=== PATIENT | male | born 1985 | race Caucasian/White ===

== ENCOUNTER 2019-12-12 06:48 | Emergency (ER) | payer BC, SELFPAY ==
--- NOTE | ~2019-12-12 | XR_ITS ---
EXAMINATION: XR elbow LT min 3V DATE: 12/12/2019 07:30 INDICATION: Left elbow injury. TECHNIQUE: 4 views of left elbow were obtained. COMPARISON: None. FINDINGS: Bone alignment is normal. No fracture. Joint spaces are well maintained. There is no elbow joint effusion. IMPRESSION: 1. Normal left elbow. Reviewed, dictated and finalized at location A. [facility] IMPRESSION: 1. Normal left elbow.
[2019-12-12 07:06] VITALS: BP 150/95; PULSE 91; RESP 18; TEMP 36.9; O2SAT 98
--- NOTE | 2019-12-12 07:15 | ED.FALL ---
HPI - Fall General Chief Complaint: Fall Stated Complaint: elbow pain Time Seen by Provider: 12/12/19 07:05 Source: patient Mode of arrival: ambulatory Limitations: no limitations History of Present Illness HPI Narrative: Maurizio is a very pleasant 34-year-old male patient. He presents ambulatory to the emergency room. He states that he was at work yesterday using a large drill, drilling holes and concrete. Apparently it was not anchored in it threw him off about 4 or 5 ft any landed on his left elbow. He had the back of his head also but he had a safety helmet on. His main complaint is pain and swelling to the back of the left elbow. He has minor abrasions to this area. Range of motion is normal in the elbow. There is no history of loss of consciousness. There is no other injury. Rates pain at about 4 or 5. He has not taken any medication for this. He came for a checkup. He states that this happened at about 2:00 p.m. yesterday. complaint: fall Onset (ago): day(s) (1 day) Fall from: standing Place fall occurred: work Loss of consciousness: none Symptoms prior to fall: none Context: other ( See HPI narrative) Location of injury: other ( back of left elbow) Location of injury - extremities: Left: elbow Severity scale (1-10): 4 Quality: sharp Associated symptoms (after fall): denies and other ( no headache. No neck pain. No abdominal pain. No chest pain. No back pain.) Related Data Home Medications Medication Instructions Recorded Confirmed buspirone 7.5 mg PO TID 12/12/19 12/12/19 Allergies Allergy/AdvReac Type Severity Reaction Status Date / Time No Known Allergies Allergy Verified 12/12/19 07:14 Review of Systems Review of Systems: All systems reviewed & are unremarkable except as noted in HPI and below Constitutional: Constitutional: Reports as per HPI, Denies chills and Denies fever(s) Eyes: Eyes: Reports as per HPI and Denies change in vision ENT: Reports system reviewed and no additional complaints, except as documented, Denies vertigo, Denies dizziness, Denies nasal congestion and Denies sore throat Cardiovascular: Cardiovascular: Reports as per HPI, Denies chest pain and Denies radiating jaw, neck or arm pain Respiratory: Respiratory: Reports as per HPI, Reports no additional respiratory complaints, Denies cough and Denies dyspnea Gastrointestinal: Gastrointestinal: Reports as per HPI, Denies abdominal pain, Denies nausea and Denies vomiting Genitourinary: Comments: Deferred Musculoskeletal: Musculoskeletal: Reports no additional musculoskeletal complaints Comments: pain to the back of the left elbow Integumentary/Breasts: Skin/Breast: Reports rash ( minor abrasion to back of left help. Last tetanus shot was 3 years ago.) Neurologic: Reports system reviewed and no additional complaints, except as documented, Denies vertigo, Denies dizziness, Denies syncope, Denies headache(s), Denies focal weakness, Denies numbness and Denies weakness Psychiatric: Psychiatric: Reports no additional psychiatric complaints and Reports anxiety Endocrine: Endocrine: Reports no additional endocrine complaints and Denies polydipsia Hematologic/Lymphatic: Hematologic/Lymphatic: Reports no additional hematologic/lymphatic complaints, Denies easy bleeding and Denies easy bruising Allergic/Immunologic: Allergic/Immunologic: Reports no additional allergic/immunologic complaints, Denies lip swelling and Denies tongue swelling PMFSH Past Medical History Medical History (Updated 12/12/19 @ 07:47 by Siva Beaver MD) Anxiety Surgical History Surgical History (Updated 12/12/19 @ 07:21 by Siva Beaver MD) H/O lymph node biopsy Social History Social History (Updated 12/12/19 @ 07:21 by Siva Beaver MD) Smoking packs per day: 1 Smoking cigarettes per day: 20.0 Years smoked: 10 Smoking pack-years: 10.00 Smoking status: Current every day smoker Alcohol intake: current
[2019-12-12 07:49] VITALS: BP 135/80; PULSE 82; RESP 18; O2SAT 98
== END 2019-12-12 07:54 | disposition home or self-care (01) ==
PROVIDERS: Emergency Provider Surgery
DX: S50.02XA Contusion of left elbow, initial encounter (principal); W19.XXXA Unspecified fall, initial encounter
CPT/HCPCS: 73080; 99282; 99283; A4565

== ENCOUNTER 2020-04-27 04:10 | Emergency (ER) | payer BC, SELFPAY ==
[2020-04-27 04:11] VITALS: BP 147/106; PULSE 99; RESP 16; TEMP 36.7; O2SAT 98
[2020-04-27 04:32] VITALS: BP 147/100
--- NOTE | 2020-04-27 04:38 | ED.BACK ---
HPI - Back Pain/Injury General Chief Complaint: Back Pain/Injury Stated Complaint: Back pain Source: patient Mode of arrival: ambulatory Limitations: no limitations History of Present Illness HPI Narrative: Sh 35-year-old gentleman that presents with right lower back pain that occurred after he was playing an outdoor game and while he was bending over he felt a back pain with muscle spasm on the right lower L4 paravertebral area that is tender with no radiation no numbness or tingling no dysuria no increased urination or difficulty with bowel movements. No fever or chills. MD elicited complaint: back pain and back injury Onset (ago): hour(s) Timing: intermittent Severity: moderate Pain scale (0-10): 6 Similar Symptoms Previously: No Quality: spasming Location: right lower back Radiation: none Exacerbating factors: movement Context: bending Associated symptoms: denies other symptoms Related Data Home Medications Medication Instructions Recorded Confirmed buspirone 7.5 mg PO TID 12/12/19 04/27/20 Allergies Allergy/AdvReac Type Severity Reaction Status Date / Time No Known Allergies Allergy Verified 12/12/19 07:14 Review of Systems Review of Systems: All systems reviewed & are unremarkable except as noted in HPI and below PMFSH Past Medical History Medical History Anxiety Surgical History Surgical History H/O lymph node biopsy Social History Social History Smoking packs per day: 1 Smoking cigarettes per day: 20.0 Years smoked: 10 Smoking pack-years: 10.00 Smoking status: Current every day smoker Alcohol intake: current Drinks per week: 1 Substance use: never Exam Const: General: no acute distress and alert Nutritional Appearance: well nourished Orientation/consciousness: patient oriented x3 HENMT: Head: normal to inspection Eyes: Conjunctivae: conjunctivae normal EOM: EOMs intact bilaterally Neck: Neck: normal visual inspection Chest: Chest palpation & inspection: normal inspection of the chest Resp: Effort & Inspection: normal respiratory effort Auscultation: clear to auscultation bilaterally Cardio: Rate: regular rate Rhythm: regular rhythm GI: Inspection: distended Auscultation: normal bowel sounds : Testes: Testes normal Urinary Catheter: Urinary Catheter: patent and draining Back/Spine/Pelvis: Back: no CVA tenderness Skin: General skin exam: normal color Rashes: no rashes Neuro: General: patient oriented x3, moves all extremities and no meningeal signs Extrem: Other: L4 right paravertebral muscle tenderness with palpation the negative straight leg-raising test. Psych: Appearance: grossly normal Affect: normal affect Attitude: cooperative Thought content: Yes Normal thought content present Course Course Emergency Course: Patient with right lower back pain given 60 of IV Toradol and p.o. cyclobenzaprine with moderate relief of pain. Vital Signs Vital signs: Vital Signs Temperature 36.7 C 04/27/20 04:11 Pulse Rate 99 04/27/20 04:11 Respiratory Rate 16 04/27/20 04:11 Blood Pressure 147/106 H 04/27/20 04:11 Pulse Oximetry 98 04/27/20 04:11 Temperature 36.7 C 04/27/20 04:11 Pulse Rate 99 04/27/20 04:11 Respiratory Rate 16 04/27/20 04:11 Blood Pressure 147/100 H 04/27/20 04:32 Pulse Oximetry 98 04/27/20 04:11 Critical Care Time Critical Care Time Critical Care Time: No Discharge Plan Discharge Clinical Impression: Strain of lumbar region Qualifiers: Encounter type: initial encounter Qualified Code(s): S39.012A - Strain of muscle, fascia and tendon of lower back, initial encounter Patient Disposition: Home, Self-Care Condition: Stable Instructions: Antibiotic Form, Low Back Strain (ED), Lower Back Exercises (ED) Additional
[2020-04-27] MEDS: CYCLOBENZAPRINE HCL 10 MG TABLET PO (04:40)
[2020-04-27] MEDS: KETOROLAC (*BKC) 60 MG/2 ML VIAL IM (04:40)
[2020-04-27 04:45] VITALS: BP 149/98; PULSE 97; RESP 20; O2SAT 97
[2020-04-27 04:47] VITALS: BP 149/98; PULSE 103; RESP 16; O2SAT 97
== END 2020-04-27 04:49 | disposition home or self-care (01) ==
PROVIDERS: Emergency Provider Emergency Medicine; PCP Family Medicine
DX: S39.012A Strain of muscle, fascia and tendon of lower back, initial encounter (principal)
CPT/HCPCS: 96372; 99283; A9270; J1885

== ENCOUNTER 2022-02-17 13:13 | Emergency (ER) | payer OTHER, SELFPAY ==
[2022-02-17 13:15] VITALS: BP 136/93; PULSE 89; RESP 20; TEMP 36.8; O2SAT 97
--- NOTE | 2022-02-17 13:33 | ED.EXTPRO ---
HPI - Extremity Problem General Chief complaint: Extremity Problem,Nontraumatic Stated complaint: THINKS HE BROKE HIS FOOT Time Seen by Provider: 02/17/22 13:33 Source: patient and RN notes reviewed Mode of arrival: ambulatory Limitations: no limitations History of Present Illness Complaint: joint swelling and joint paint Onset (ago): day(s) (1) Pain Consistency: constant Location: right and toe (great) Severity scale (1-10): 8 Quality: aching, sharp and constant Radiation: none Relieving factors: nothing Exacerbating factors: range of motion, weight bearing and palpation Associated symptoms: denies other symptoms Related Data Home Medications Medication Instructions Recorded Confirmed buspirone 7.5 mg PO TID 12/12/19 02/17/22 amlodipine 5 mg PO DAILY 02/17/22 02/17/22 gabapentin 400 mg PO BID 02/17/22 02/17/22 hydroxyzine pamoate 50 mg PO DAILY 02/17/22 02/17/22 Allergies Allergy/AdvReac Type Severity Reaction Status Date / Time No Known Allergies Allergy Verified 12/12/19 07:14 Review of Systems Review of Systems: All systems reviewed & are unremarkable except as noted in HPI and below PMFSH Past Medical History Medical History (Updated 02/17/22 @ 14:19 by Vickey Beard MD) Anxiety Hypertension Surgical History Surgical History H/O lymph node biopsy Social History Social History Smoking packs per day: 1 Smoking cigarettes per day: 20.0 Years smoked: 10 Smoking pack-years: 10.00 Smoking status: Current every day smoker Alcohol intake: current Drinks per week: 1 Alcohol use details: social Substance use: never Exam Const: General: healthy appearing, no acute distress and alert Nutritional Appearance: well nourished Orientation/consciousness: patient oriented x3 HENMT: Head: normal to inspection Ears: external ears normal Face and sinus: normal facial exam Mouth: Yes moist mucous membranes Eyes: Conjunctivae: conjunctivae normal Pupils: Equal, round and reactive pupils present EOM: EOMs intact bilaterally Neck: Neck: normal visual inspection Resp: Effort & Inspection: normal respiratory effort Auscultation: clear to auscultation bilaterally Cardio: Rate: regular rate Rhythm: regular rhythm GI: GI Palp: Yes Soft to palpation and No Tenderness to palpation present (GI) Auscultation: normal bowel sounds Back/Spine/Pelvis: Cervical Spine: cervical ROM normal Thoracic/Lumbar Spine: thoraco-lumbar ROM normal Skin: General skin exam: normal color Rashes: no rashes Neuro: General: patient oriented x3, moves all extremities, no focal motor deficits and CN's II-XI intact bilaterally Speech: normal speech Extrem: General: normal exam except as noted Right lower extremity: foot Details: tenderness Location: of the great toe Location: at the MTP joint, at the proximal phalanx, at the IP joint, along the dorsal aspect and along the plantar aspect, toes with normal ROM, warmth Location: of the great toe Location: at the MTP joint and edema Location: of the great toe Location: at the MTP joint and at the proximal phalanx Psych: Appearance: grossly normal and well kempt Mental Status: mental status grossly normal Affect: normal affect Attitude: cooperative Thought content: Yes Normal thought content present Course Vital Signs Vital signs: Vital Signs Temperature 36.8 C 02/17/22 13:15 Pulse Rate 89 02/17/22 13:15 Respiratory Rate 20 02/17/22 13:15 Blood Pressure 136/93 H 02/17/22 13:15 Pulse Oximetry 97 02/17/22 13:15 Temperature 36.4 C L 02/17/22 14:33 Pulse Rate 105 H 02/17/22 14:33 Respiratory Rate 20 02/17/22 14:33 Blood Pressure 132/93 H 02/17/22 14:33 Pulse Oximetry 95 02/17/22 14:33 MDM - Extremity (Nontraumatic) Lab Data Attestation: I reviewed the patient's lab results. Result diagrams: 02/17/22 13:42
[2022-02-17 13:53] LABS: Basophils Absolute Auto 0.08 K/mm3 (0.00-0.10); Basophils Percent Auto 0.8 % (0.0-1.0); Eosinophils Absolute Auto 0.29 K/mm3 (0.02-0.50); Hematocrit 41.3 % (40.0-54.0); Hemoglobin 14.1 g/dL (14.0-18.0); Immature Granulocyte Absolute 0.11 K/mm3 (0.00-0.00); Immature Granulocyte Percent A 1.1 % (0.0-0.0); Lymphocytes Absolute Auto 2.51 K/mm3 (1.10-4.50); Lymphocytes Percent Auto 25.8 % (18.0-42.0); Mean Corpuscular HGB Conc 34.1 g/dL (32.0-36.0); Mean Corpuscular Hemoglobin 32.7 pg (27.0-31.0); Mean Corpuscular Volume 95.8 fL (78.0-102.0); Mean Platelet Volume 8.4 fl (8.7-11.0); Monocytes Absolute Auto 0.62 K/mm3 (0.10-0.90); Monocytes Percent Auto 6.4 % (2.0-11.0); Neutrophils Absolute Auto 6.1 K/mm3 (1.7-7.2); Neutrophils Percent Auto 62.9 % (50.0-70.0); Platelet Count Result 342 K/mm3 (150-420); Red Blood Count 4.31 M/mm3 (4.70-6.10); Red Cell Distribution Width 13.2 % (11.6-14.4); White Blood Count 9.7 K/mm3 (4.8-10.8)
[2022-02-17 13:59] LABS: Anion Gap 10 mmol/L (8-16); Blood Urea Nitrogen 2 mg/dL (7-18); CRP 1.8 mg/dL (0.0-0.9); Calcium 8.8 mg/dL (8.5-10.1); Carbon Dioxide 27 mmol/L (21-32); Chloride 102 mmol/L (98-108); Estimated CRCL calculation 1150 ml/min; Estimated Glomerular Filt Rate > 60; Glucose 113 mg/dL (70-99); Osmolality Calculated 285 mOsm/kg (285-295); Potassium 3.6 mmol/L (3.5-5.1); Sodium 139 mmol/L (136-145); Uric Acid 8.5 mg/dL (3.5-7.2)
[2022-02-17] MEDS: methylPREDNISolone SOD SUCC 125 MG VIAL IM (14:31)
[2022-02-17 14:33] VITALS: BP 132/93; PULSE 105; RESP 20; TEMP 36.4; O2SAT 95
== END 2022-02-17 14:38 | disposition home or self-care (01) ==
PROVIDERS: Emergency Provider Emergency Medicine
DX: M10.071 Idiopathic gout, right ankle and foot (principal)
CPT/HCPCS: 36415; 80048; 84550; 85025; 86140; 96374; 99283; J2930

== ENCOUNTER 2024-05-08 14:16 | Emergency (ER) | payer OTHER, SELFPAY ==
[2024-05-08 14:18] VITALS: BP 146/98; PULSE 121; RESP 18; TEMP 37; O2SAT 96
--- NOTE | 2024-05-08 14:24 | ED.WOUNDLAC ---
HPI - Wound/Laceration General Stated Complaint: left middle finger injury Time Seen by Provider: 05/08/24 14:18 Source: patient Mode of arrival: ambulatory Limitations: no limitations History of Present Illness HPI narrative: this is a 39-year-old male who presents with laceration flap to the tip of his left 3rd finger after he was reaching in a tool chest and cut his finger on a razor blade currently not bleeding not up-to-date with his tetanus has good range of motion is finger and nontender. Onset (ago): hour(s) Location: other Extremity Location: Left: hand ( Flap laceration 3rd distal finger on the left) Place: home Patient tetanus UTD: No Context: accidental Related Data Home Medications Medication Instructions Recorded Confirmed buspirone 7.5 mg tablet 7.5 mg PO TID 12/12/19 02/17/22 amlodipine 5 mg tablet 5 mg PO DAILY 02/17/22 02/17/22 gabapentin 400 mg capsule 400 mg PO BID 02/17/22 02/17/22 hydroxyzine pamoate 50 mg capsule 50 mg PO DAILY 02/17/22 02/17/22 Allergies Allergy/AdvReac Type Severity Reaction Status Date / Time No Known Allergies Allergy Verified 12/12/19 07:14 Review of Systems Review of Systems: All systems reviewed & are unremarkable except as noted in HPI and below PMFSH Past Medical History Medical History Anxiety Hypertension Surgical History Surgical History H/O lymph node biopsy Social History Social History Smoking packs per day: 1 Smoking cigarettes per day: 20.0 Years smoked: 10 Smoking pack-years: 10.00 Smoking status: Current every day smoker Alcohol intake: current Drinks per week: 1 Alcohol use details: social Substance use: never Exam Const: General: healthy appearing, no acute distress and alert Nutritional Appearance: well nourished Neck: Neck: normal visual inspection, no lymphadenopathy and no meningeal signs Chest: Chest palpation & inspection: normal inspection of the chest Resp: Effort & Inspection: normal respiratory effort Auscultation: clear to auscultation bilaterally Cardio: Rate: regular rate Rhythm: regular rhythm GI: GI Palp: Yes Soft to palpation Auscultation: normal bowel sounds Extrem: Other: Flap laceration distal end of his left 3rd finger Course Course Emergency Course: patient updated with his tetanus and Dermabond was applied to the laceration on his left 3rd finger tip Vital Signs Vital signs: Vital Signs Temperature 37.0 C 05/08/24 14:18 Pulse Rate 121 H 05/08/24 14:18 Respiratory Rate 18 05/08/24 14:18 Blood Pressure 146/98 H 05/08/24 14:18 Pulse Oximetry 96 05/08/24 14:18 Oxygen Delivery Room Air 05/08/24 14:18 Temperature 37.0 C 05/08/24 14:18 Pulse Rate 121 H 05/08/24 14:18 Respiratory Rate 18 05/08/24 14:18 Blood Pressure 146/98 H 05/08/24 14:18 Pulse Oximetry 96 05/08/24 14:18 Oxygen Delivery Room Air 05/08/24 14:18 Procedures Laceration Laceration 1: Date: 05/08/24 Time: 14:26 Site: upper extremity Side (If applicable): left Size (cm): 1.5 Description: flap Pre-repair: minor debridement ====== Skin Level ====== Skin layer closed with: dermabond ====== Subcutaneous Layer ====== ====== Muscle Layer ====== ====== Tendon Layer ====== Critical Care Time Critical Care Time Critical Care Time: No Discharge Plan Discharge Clinical Impression: Laceration Patient Disposition: Home, Self-Care Condition: Stable Instructions: Antibiotic Form, Laceration (ED) Additional Instructions: follow-up with primary if symptoms persist or worsen. Prescriptions: No Action buspirone 7.5 mg tablet 7.5 mg PO TID gabapentin 400 mg capsule 400 mg PO BID hydroxyzine pamo
[2024-05-08] MEDS: TETANUS,DIPHTHERIA,AC PERTUSSIS ADULT 0.5 ML (ADACEL) IM (14:30)
== END 2024-05-08 14:43 | disposition home or self-care (01) ==
LOC: CHSED 14:34
PROVIDERS: Emergency Provider Emergency Medicine; PCP Family Medicine
DX: S61.213A Laceration without foreign body of left middle finger without damage to nail, initial encounter (principal); I10 Essential (primary) hypertension; Z23 Encounter for immunization; F17.210 Nicotine dependence, cigarettes, uncomplicated; W26.8XXA Contact with other sharp object(s), not elsewhere classified, initial encounter
CPT/HCPCS: 12001; 90471; 90715; 99282

== ENCOUNTER 2025-07-23 19:31 | Emergency (ER) | payer OTHER, SELFPAY ==
[2025-07-23 19:35] VITALS: BP 106/76; PULSE 124; RESP 16; TEMP 36.4; O2SAT 98
--- OUTSIDE RECORDS SUMMARY | 2025-07-23 19:35 | XMS_ITS | Clinical Summary ---
Author Organization [facility] Building B Address [address] [place] [id number] Care Team Providers Care Tube Lancer Name Role Phone Joe Ratliff MD Primary Care Provider [phone] Jacky Kohli MD Unavailable Allergies No known active allergies Medications albuterol HFA (ProAir HFA) 90 mcg/actuation inhaler Inhale 2 puffs every 4 (four) hours as needed for wheezing or shortness of breath 1 each 3 2 Active cetirizine (ZyrTEC) 10 mg tablet Take 1 tablet (10 mg total) by mouth daily as needed for allergies 90 tablet 2 Active clotrimazole-be tamethasone (LOTRISONE) cream Apply topically 2 (two) times a day 45 g 2 2 Active ivermectin 1 % cream Apply 1 Application topically daily 30 g 3 Active amLODIPine (NORVASC) 5 mg tablet Take 1 tablet by mouth once daily 100 tablet 4 Active hydrOXYzine (VISTARIL) 25 mg capsule Take 1 capsule (25 mg total) by mouth 3 (three) times a day 90 capsule 11 5 11/20/19 26 Active phentermine (ADIPEX-P) 37.5 mg tabletIndicatio ns:Weight Loss Management for Obese Patient (BMI >= 30) Take 1 tablet (37.5 mg total) by mouth daily before breakfast 30 tablet 2 5 Active buPROPion SR (Wellbutrin SR) 100 mg 12 hr tablet Take 1 tablet (100 mg total) by mouth 2 (two) times a day 60 tablet 5 05/28/20 26 Active busPIRone (BUSPAR) 10 mg tabletIndicatio ns:Generalized Anxiety Disorder Take 2 tablets (20 mg total) by mouth 3 (three) times a day 180 tablet 5 05/28/20 26 Active gabapentin (NEURONTIN) 400 mg capsule Take 1 capsule (400 mg total) by mouth 3 (three) times a day 90 capsule 5 05/28/20 26 Active OLANZapine (ZyPREXA) 5 mg tablet Take 1 tablet (5 mg total) by mouth nightly 30 tablet 11 5 05/28/20 26 Active OLANZapine (ZyPREXA) 20 mg tablet Take 1 tablet (20 mg total) by mouth nightly 30 tablet 5 05/28/20 26 Active QUEtiapine (SEROquel) 100 mg tablet Take 1 tablet (100 mg total) by mouth 3 (three) times a day 90 tablet 5 05/28/20 26 Active QUEtiapine (SEROquel) 400 mg tablet Take 1 tablet (400 mg total) by mouth nightly 30 tablet 11 5 05/28/20 26 Active Active Problems Problem Noted Date Diagnosed Date Snoring 02/07/2024 Assessment & Plan (02/07/2024 9:54 AM CDT): No previous sleep study. +persistent daytime fatigue +weight gain from Zyprexa (155 lbs prior to Zyprexa - but still snored). +vapes - upper airway inflammation Results for STOP-BANG Score for Obstructive Sleep Apnea by QxMD Results: High risk of MARISSA Points: 5 Answers calculated to formulate result: 1. Do you snore loudly? -- Yes 2. Do you often feel tired, fatigued, or sleepy during the daytime? -- Yes 3. Has anyone observed you stop breathing during sleep? -- No 4. Do you have (or being treated for) high blood pressure? -- Yes 5. Patient BMI? -- >35 kg/m2 6. Patient age? -- <= 50 years old 7. Patient neck circumference? -- <= 40 cm or 15.7 inches 8. Patient gender? 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 The benefit of using this medication was discussed at length the patient. Review risk of using this medication was also discussed with the patient. After lengthy discussion, it was determined that the benefit of using this medication outweighs the risk of using the medication. The patient verbalized an understanding of the benefit and risk of this medication and agreed to proceed with use of this medication. Goals for weight loss were discussed with the patient. Current weight: 232 lbs Target weight by next appointment: 220 lbs Long-term target weight: under 200 lbs - 180 -190 lbs We discussed the need for lifestyle modification including changes to diet, incorporate regularly scheduled exercise, obtain sufficient sleep/maintaining proper sleep hygiene, and reduce overall level of stress. I had a detailed discussion with the patient regarding the potential of developing both acute and chronic cardiovascular problems from use of this medication. I advised the patient of the potential for serious reactions from taking phentermine including cardiac ischemia, tachycardia, hypertension, pulmonary hypertension, psychosis, dependency/abuse, and possible withdrawal symptoms discussed with the patient. I also advised the patient of common reactions including palpitations, tachycardia, elevated blood pressure, restlessness, dizziness, insomnia, euphoria, dysphoria, tremor, headache, unpleasant taste, diarrhea, constipation, urticaria, impotence, libido changes also discussed with the patient. The patient verbalized an understanding of possible serious and common reactions and expressed a desire to proceed with treatment. The patient was advised by me and agreed to discontinue the medication immediately if any of these symptoms were to develop. The patient was advised by me and agreed to proceed with urgent medical care if any of the aforementioned symptoms were to develop. The patient also agreed to participate in an overall lifestyle modification program including changes to intake of nutrients, physical activity as discussed and appropriate, proper sleep including treatment of obstructive sleep apnea as applicable, and participation in social activity, meditation, deep breathing, or other relaxation techniques as discussed. The patient agreed to track caloric intake with a journal, utilize an application for monitoring intake of calories such as Lose It or [employer] , or other programs such as Weight Watchers. I will re-evaluate treatment with the patient again at the next scheduled appointment. Assessment & Plan (03/05/2024 8:21 AM CDT): Wt Readings from Last 3 Encounters: 03/05/24 108 kg (238 lb 3.2 oz) 08/15/23 107 kg (236 lb) 02/27/23 93 kg (205 lb) BMI Readings from Last 3 Encounters: 03/05/24 37.30 kg/m 08/15/23 36.96 kg/m 02/27/23 32.10 kg/m Not at goal of bmi <30 Continue diet and exercise BMI Follow-up includes: nutrition counseling and exercise counseling. Assessment & Plan (02/07/2024 10:00 AM CDT): I discussed with the patient the use of phentermine as a tool to facilitate targeted weight loss. The benefit of using this medication was discussed at length the patient. Review risk of using this medication was also discussed with the patient. After lengthy discussion, it was determined that the benefit of using this medication outweighs the risk of using the medication. The patient verbalized an understanding of the benefit and risk of this medication and agreed to proceed with use of this medication. Goals for weight loss were discussed with the patient. Current weight: 235 lbs Target weight by next appointment: 220 lbs Long-term target weight: under 200 lbs - 180 -190 lbs We discussed the need for lifestyle modification including changes to diet, incorporate regularly scheduled exercise, obtain sufficient sleep/maintaining proper sleep hygiene, and reduce overall level of stress. I had a detailed discussion with the patient regarding the potential of developing both acute and chronic cardiovascular problems from use of this medication. I advised the patient of the potential for serious reactions from taking phentermine including cardiac ischemia, tachycardia, hypertension, pulmonary hypertension, psychosis, dependency/abuse, and possible withdrawal symptoms discussed with the patient. I also advised the patient of common reactions including palpitations, tachycardia, elevated blood pressure, restlessness, dizziness, insomnia, euphoria, dysphoria, tremor, headache, unpleasant taste, diarrhea, constipation, urticaria, impotence, libido changes also discussed with the patient. The patient verbalized an understanding of possible serious and common reactions and expressed a desire to proceed with treatment. The patient was advised by me and agreed to discontinue the medication immediately if any of these symptoms were to develop. The patient was advised by me and agreed to proceed with urgent medical care if any of the aforementioned symptoms were to develop. The patient also agreed to participate in an overall lifestyle modification program including changes to intake of nutrients, physical activity as discussed and appropriate, proper sleep including treatment of obstructive sleep apnea as applicable, and participation in social activity, meditation, deep breathing, or other relaxation techniques as discussed. The patient agreed to track caloric intake with a journal, utilize an application for monitoring intake of calories such as Lose It or [employer] , or other programs such as Weight Watchers. I will re-evaluate treatment with the patient again at the next scheduled appointment. Gout, unspecified 08/15/2023 Bipolar 2 disorder 05/31/2023 Assessment & Plan (11/20/2024 1:38 PM INSTRUMENTATION CONTROLS ENGINEER): Chronic, stable. Lybalvi prescribed due to significant weight gain on Zyprexa. Unfortunately insurance would not cover this medication. Continues taking Zyprexa. Depressive symptoms are fairly well controlled on current medication regimen. Tolerating medications without any reported side effects. The patient denies active suicidal and homicidal ideation. The following changes were made at today's appointment: Restart Wellbutrin SR 100 mg BID-had to stop due to inability to purchase Reevaluate treatment/symptoms at interval per scheduled appointment. Assessment & Plan (07/04/2024 10:51 AM CDT): Chronic, stable. Lybalvi prescribed due to significant weight gain on Zyprexa. Unfortunately insurance would not cover this medication. Continues taking Zyprexa. Depressive symptoms are fairly well controlled on current medication regimen. Tolerating medications without any reported side effects. The patient denies active suicidal and homicidal ideation. The following changes were made at today's appointment: Wellbutrin SR 100 mg BID Reevaluate treatment/symptoms at interval per scheduled appointment. Assessment & Plan (04/27/2024 6:35 PM CDT): Chronic, stable. Lybalvi prescribed due to significant weight gain on Zyprexa. Unfortunately insurance would not cover this medication. Continues taking Zyprexa. Depressive symptoms are fairly well controlled on current medication regimen. Tolerating medications without any reported side effects. The patient denies active suicidal and homicidal ideation. The following changes were made at today's appointment: None Reevaluate treatment/symptoms at interval per scheduled appointment. Assessment & Plan (03/05/2024 8:10 AM CDT): Chronic, stable Continue psychiatry follow upz C/w buspar 20 mg tid, gabapentin 400 mg tid, zyprexa 20 mg qhs, seroquel 400 mg qhs, 100 mg tid Assessment & Plan (12/17/2023 6:10 AM INSTRUMENTATION CONTROLS ENGINEER): Chronic, stable. Lybalvi prescribed due to significant weight gain on Zyprexa. Depressive symptoms are well controlled on current medication regimen. Tolerating medications without any reported side effects. The patient denies active suicidal and homicidal ideation. The following changes were made at today's appointment: See below Reevaluate treatment/symptoms at interval per scheduled appointment. Assessment & Plan (10/04/2023 8:13 PM INSTRUMENTATION CONTROLS ENGINEER): Chronic, stable. Diagnosed with possibly MDD but on 2 APs Depressed rated 3-4/10 Depressive symptoms are well controlled on current medication regimen. Tolerating medications without any reported side effects. The patient denies active suicidal and homicidal ideation. The following changes were made at today's appointment: none Reevaluate treatment/symptoms at interval per scheduled appointment. Assessment & Plan (08/06/2023 2:16 PM CDT): Chronic, stable. Diagnosed with possibly MDD but on 2 APs Depressed rated 3-4/10 Depressive symptoms are well controlled on current medication regimen. Tolerating medications without any reported side effects. The patient denies active suicidal and homicidal ideation. The following changes were made at today's appointment: none Reevaluate treatment/symptoms at interval per scheduled appointment. Assessment & Plan (05/31/2023 2:57 PM CDT): Chronic, stable. Diagnosed with possibly MDD but on 2 APs Depressive symptoms are well controlled on current medication regimen. Tolerating medications without any reported side effects. The patient denies active suicidal and homicidal ideation. The following changes were made at today's appointment: none Reevaluate treatment/symptoms at interval per scheduled appointment. Generalized anxiety disorder 05/31/2023 Assessment & Plan (12/17/2023 6:11 AM INSTRUMENTATION CONTROLS ENGINEER): Chronic condition with stable symptoms. Medication changes today: None Insight-oriented, supportive counseling provided. Continued management as discussed Assessment & Plan (10/04/2023 8:13 PM INSTRUMENTATION CONTROLS ENGINEER): Chronic condition with stable symptoms. Medication changes today: Buspirone increased. Insight-oriented, supportive counseling provided. Continued management as discussed Assessment & Plan (08/06/2023 2:15 PM CDT): Chronic condition with stable symptoms. Rates 5/10 Medication changes today: none Insight-oriented, supportive counseling provided. Continued management as discussed Assessment & Plan (05/31/2023 11:01 AM CDT): Chronic condition with stable symptoms. Medication changes today: none Insight-oriented, supportive counseling provided. Continued management as discussed Encounter for psychiatric assessment 05/31/2023 Assessment & Plan (05/31/2023 2:58 PM CDT): Psychiatric assessment was completed during the appointment today. All the paperwork completed by the patient was reviewed by me with the patient. All of the questions posed to me by the patient were answered. A treatment plan was developed in line with the information presented to me. Refer to specific problems for additional information regarding assessment and treatment recommendations. Hypertension, essential 11/14/2022 Assessment & Plan (03/05/2024 8:19 AM CDT): BP Readings from Last 3 Encounters: 03/05/24 102/78 08/15/23 126/88 02/27/23 118/80 Vitals BP 102/78 (BP Location: Left arm, Patient Position: Sitting) Pulse 112 Resp 16 Ht 170.2 cm (5' 7.01) Wt 108 kg (238 lb 3.2 oz) SpO2 94% BMI 37.30 kg/m No results found for: POTASSIUM At goal, however, pt is symptoamtic at times Bp on low end of nromal today Does have tachycardia frequently exspecially at rest, wondering if its due to BP dropping further Decreae norvasc to 2.5 mg every day Check ekg Assessment & Plan (08/15/2023 3:35 PM CDT): BP Readings from Last 3 Encounters: 08/15/23 126/88 02/27/23 118/80 11/14/22 112/84 Vitals BP 126/88 (BP Location: Right arm, Patient Position: Sitting) Pulse 105 Temp 36.5 C (97.7 F) Resp 20 Ht 170.2 cm (5' 7) Wt 107 kg (236 lb) SpO2 95% BMI 36.96 kg/m No results found for: POTASSIUM At goal Continue norvac 5 mg every day Assessment & Plan (02/27/2023 4:48 PM CDT): BP Readings from Last 3 Encounters: 11/14/22 112/84 10/02/22 117/83 03/29/22 118/88 There were no vitals taken for this visit. No results found for: POTASSIUM At goal Continue norvac 5 mg every day Assessment & Plan (11/14/2022 9:06 AM INSTRUMENTATION CONTROLS ENGINEER): BP Readings from Last 3 Encounters: 11/14/22 112/84 10/02/22 117/83 03/29/22 118/88 Vitals BP 112/84 (BP Location: Left arm, Patient Position: Sitting) Pulse 96 Resp 18 Ht 170.2 cm (5' 7) Wt 94.8 kg (209 lb) SpO2 98% BMI 32.73 kg/m No results found for: POTASSIUM Blood pressure at goal, continue norvasc 5 mg every day Physical exam, annual 10/03/2022 Assessment & Plan (03/05/2024 8:21 AM CDT): Discussed lifestyle modifications, diet and exercise. Routine blood work ordered/reviewed today. Yearly vision and dental examinations. Assessment & Plan (10/03/2022 7:39 AM INSTRUMENTATION CONTROLS ENGINEER): Discussed lifestyle modifications, diet and exercise. Routine blood work ordered/reviewed today. Yearly vision and dental examinations. Alcohol dependence in sustained full remission 0 07/04/2021 Assessment & Plan (11/20/2024 1:37 PM INSTRUMENTATION CONTROLS ENGINEER): Chronic condition, currently stable. No cravings. Date of sobriety: November 2021 Remains completely abstinent. Between work and home I stay busy. Historical information: According to what the patient reports to me today, he is doing remarkably well. It was as bad as it gets. Would wake up and start drinking - whiskey mainly. I have people who drink around me - there's nothing really that triggers me. 18 mos NA - not AA 2 different treatment episodes. Quit 6-8 mos ago - I just didn't need it anymore. 2nd time in treatment is what really did it for me. SHERINE Richards. Not as much as used NA - once per week. Sponsor - Danny - sober over 15 years. All or nothing - no marijuana. Continue to monitor. 10/04/2023: Remains sober. 11/12/2023: Remains sober. Doing well. No cravings. 04/18/2024: Remains sober. +cravings out of work-stressful. 07/04/2024: remains sober. High stress. 11/19/2024: Denies any use of alcohol or drugs Continue to monitor. Assessment & Plan (07/04/2024 10:27 AM CDT): Chronic condition, currently stable. No cravings. Date of sobriety: November 2021 Remains completely abstinent. Between work and home I stay busy. Historical information: According to what the patient reports to me today, he is doing remarkably well. It was as bad as it gets. Would wake up and start drinking - whiskey mainly. I have people who drink around me - there's nothing really that triggers me. 18 mos NA - not AA 2 different treatment episodes. Quit 6-8 mos ago - I just didn't need it anymore. 2nd time in treatment is what really did it for me. SHERINE Richards. Not as much as used NA - once per week. Sponsor - Danny - sober over 15 years. All or nothing - no marijuana. Continue to monitor. 10/04/2023: Remains sober. 11/12/2023: Remains sober. Doing well. No cravings. 04/18/2024: Remains sober. +cravings out of work-stressful. 07/04/2024: remains sober. High stress. Continue to monitor. Assessment & Plan (04/27/2024 6:34 PM CDT): Chronic condition, currently stable. No cravings. Date of sobriety: November 2021 Remains completely abstinent. Between work and home I stay busy. Historical information: According to what the patient reports to me today, he is doing remarkably well. It was as bad as it gets. Would wake up and start drinking - whiskey mainly. I have people who drink around me - there's nothing really that triggers me. 18 mos NA - not AA 2 different treatment episodes. Quit 6-8 mos ago - I just didn't need it anymore. 2nd time in treatment is what really did it for me. SHERINE Richards. Not as much as used NA - once per week. Sponsor - Danny - sober over 15 years. All or nothing - no marijuana. Continue to monitor. 10/04/2023: Remains sober. 11/12/2023: Remains sober. Doing well. No cravings. 04/18/2024: Remains sober. +cravings out of work-stressful. Continue to monitor. Assessment & Plan (11/12/2023 2:12 PM INSTRUMENTATION CONTROLS ENGINEER): Chronic condition, currently stable. No cravings. Date of sobriety: November 2021 Remains completely abstinent. Between work and home I stay busy. Historical information: According to what the patient reports to me today, he is doing remarkably well. It was as bad as it gets. Would wake up and start drinking - whiskey mainly. I have people who drink around me - there's nothing really that triggers me. 18 mos NA - not AA 2 different treatment episodes. Quit 6-8 mos ago - I just didn't need it anymore. 2nd time in treatment is what really did it for me. SHERINE Richards. Not as much as used NA - once per week. Sponsor - Danny - sober over 15 years. All or nothing - no marijuana. Continue to monitor. 10/04/2023: Remains sober. 11/12/2023: Remains sober. Doing well. No cravings. Assessment & Plan (10/04/2023 8:12 PM INSTRUMENTATION CONTROLS ENGINEER): Chronic condition, currently stable. No cravings. Date of sobriety: November 2021 Remains completely abstinent. Between work and home I stay busy. Historical information: According to what the patient reports to me today, he is doing remarkably well. It was as bad as it gets. Would wake up and start drinking - whiskey mainly. I have people who drink around me - there's nothing really that triggers me. 18 mos NA - not AA 2 different treatment episodes. Quit 6-8 mos ago - I just didn't need it anymore. 2nd time in treatment is what really did it for me. SHERINE Richards. Not as much as used NA - once per week. Sponsor - Danny - sober over 15 years. All or nothing - no marijuana. Continue to monitor. 10/04/2023: Remains sober. Assessment & Plan (08/06/2023 2:15 PM CDT): Chronic condition, currently stable. No cravings. Date of sobriety: November 2021 Remains completely abstinent. Between work and home I stay busy. Historical information: According to what the patient reports to me today, he is doing remarkably well. It was as bad as it gets. Would wake up and start drinking - whiskey mainly. I have people who drink around me - there's nothing really that triggers me. 18 mos NA - not AA 2 different treatment episodes. Quit 6-8 mos ago - I just didn't need it anymore. 2nd time in treatment is what really did it for me. SHERINE Richards. Not as much as used NA - once per week. Sponsor - Danny - sober over 15 years. All or nothing - no marijuana. Continue to monitor. Assessment & Plan (05/31/2023 2:48 PM CDT): Chronic condition, currently stable. Remission for the past 18 months. According to what the patient reports to me today, he is doing remarkably well. It was as bad as it gets. Would wake up and start drinking - whiskey mainly. I have people who drink around me - there's nothing really that triggers me. 18 mos NA - not AA Quit 6-8 mos ago - I just didn't need it anymore. Assessment & Plan (02/27/2023 4:48 PM CDT): Has appt with psychiatry in may Assessment & Plan (10/02/2022 4:38 PM INSTRUMENTATION CONTROLS ENGINEER): Sober now 10 months - needs outpatient psychiatry after he leaves the the program - will refer back to psychaitry was unabel to keep previous appointment Assessment & Plan (01/18/2022 3:24 PM CDT): Currently sober for 2 weeks. Will continue to do outpatient meetings and rehab and see psychaitry as well. Had elevated LFTS previously will recheck now Assessment & Plan (07/04/2021 1:49 PM CDT): Discussed cutting down on alcohol and abstention. Pt willing to try to decrease alcohol intake. Will refer to psychiatry for further eval and pharm therapy. Pt currently on buspar, gabapentin, zyprexa and seroquel Diarrhea 07/04/2021 Assessment & Plan (07/04/2021 1:43 PM CDT): Has been having chronic diarrhea for a long time, exacerbated by alcohol drinking. Discussed avoiding different foods, keeping a food journal. If no improvement andnegative labs will refer to GI. Smoking 07/04/2021 Assessment & Plan (01/18/2022 3:24 PM CDT): Discussed smoking cessation, and different strategies Assessment & Plan (07/04/2021 1:48 PM CDT): Discussed smoking cessation, and different strategies Anxiety 07/04/2021 Assessment & Plan (11/14/2022 9:12 AM INSTRUMENTATION CONTROLS ENGINEER): Stable at this time - will continue vistaril 25 mg tid, zyprexa 20 mg nightlty, seroquel 100 mg bid, and seroquel 500 mg qhs Assessment & Plan (03/29/2022 3:54 PM CDT): signficant improvement since completing inpatient psych program. Continue current regimen, will establish with no psychiatrist Continue to avoid alcohol Assessment & Plan (01/18/2022 3:23 PM CDT): Continues to follow up with psychaitry after rehab, states that symptoms have significantly improved. Feels well on current medication Assessment & Plan (07/04/2021 1:51 PM CDT): Hx of anxiety, manageable with medication, today is a good day but states that days that he doesn't take his medication he is overwhelmed and in a panic. This worsens his depression Depression, major, recurrent 07/04/2021 Assessment & Plan (02/27/2023 4:49 PM CDT): Feeling much better, following with psychiatry. Continue current medication - has upcopming appt with dr. kohli in May Will continue his vistaril 25 mg tid, zyprexa 20 mg nightly, seroquel 100 mg bid and seroquel 400 mg nightly Assessment & Plan (11/14/2022 9:12 AM INSTRUMENTATION CONTROLS ENGINEER): Feeling much better, following with psychiatry. Continue current medication - will refer out to psychiatry recently completed inpatient psych program, moved to outpatient and he is completing that now and would liekt o find a new psychiatrist to continue follow up with Will continue his vistaril 25 mg tid, zyprexa 20 mg nightly, seroquel 100 mg bid and seroquel 400 mg nightly Will be leaving his outpatient therapy program, we referred to psychiatry and earliest appointment is May. Advised that I would refill his meds/take over care until he is able to see psychaitry Assessment & Plan (10/02/2022 4:38 PM INSTRUMENTATION CONTROLS ENGINEER): Stable at [facility] time - seeing psychiatry through his rehab program - on mutliple medications - will refer back to psychaitry Assessment & Plan (03/29/2022 3:51 PM CDT): Feeling much better, following with psychiatry. Continue current medication - will refer out to psychiatry recently completed inpatient psych program, moved to outpatient and he is completing that now and would liekt o find a new psychiatrist to continue follow up with Assessment & Plan (01/18/2022 3:23 PM CDT): Feeling much better, following with psychiatry. Continue current medication Assessment & Plan (07/04/2021 1:51 PM CDT): Not currently at goal, not well controlled on current medication but will refer to psych for further eval as patient already on multiple drug agents. Mild persistent asthma without complication 06/07 Assessment & Plan (07/04/2021 1:59 PM CDT): Hx of asthma as a child previously had an inhaler, now with heavy smoking likely has concomitant emphysema. Will continue with spiriva that patient was previously using with good results. No exacerbations recently as per patient but does become wheezy. Resolved Problems Problem Noted Date Diagnosed Date Resolved Date Class 1 obesity due to exces s calories without serious comorbidity with body mass index (BMI) of 31.0 to 31.9 in adult 03/29/202211/2023 Assessment & Plan (10/04/2023 8:12 PM INSTRUMENTATION CONTROLS ENGINEER): Lab work ordered. Weight gain likely due to antipsychotic medication. Consideration for Lybalvi. Assessment & Plan (02/27/2023 4:49 PM CDT): Wt Readings from Last 3 Encounters: 11/14/22 94.8 kg (209 lb) 10/02/22 95.7 kg (211 lb) 03/29/22 89.8 kg (198 lb) BMI Readings from Last 3 Encounters: 11/14/22 32.73 kg/m 10/02/22 33.04 kg/m 03/29/22 31.00 kg/m Not at goal of bmi <30 Continue diet and exercise BMI Follow-up includes: nutrition counseling and exercise counseling. Assessment & Plan (11/14/2022 9:07 AM INSTRUMENTATION CONTROLS ENGINEER): Wt Readings from Last 3 Encounters: 11/14/22 94.8 kg (209 lb) 10/02/22 95.7 kg (211 lb) 03/29/22 89.8 kg (198 lb) BMI Readings from Last 3 Encounters: 11/14/22 32.73 kg/m 10/02/22 33.04 kg/m 03/29/22 31.00 kg/m Not at goal of bmi <30 Continue diet and exercise BMI Follow-up includes: nutrition counseling and exercise counseling. Assessment & Plan (10/02/2022 4:32 PM INSTRUMENTATION CONTROLS ENGINEER): Wt Readings from Last 3 Encounters: 10/02/22 95.7 kg (211 lb) 03/29/22 89.8 kg (198 lb) 01/18/22 78.2 kg (172 lb 8 oz) BMI Readings from Last 3 Encounters: 10/02/22 33.04 kg/m 03/29/22 31.00 kg/m 01/18/22 27.02 kg/m Not at goal of bmi <30 Continue diet and exercise BMI Follow-up includes: nutrition counseling and exercise counseling. worsening Assessment & Plan (03/29/2022 3:54 PM CDT): BMI Follow-up includes: nutrition counseling and exercise counseling. 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.0 to 36.9 in adult, unspecified whether serious comorbidity present; Excessive daytime sleepiness from Last 3 Months Immunizations Immunization Administration Dates Next Due DTP 04/09/1992, 1,01/04/1990,11/09/1989, 7 Influenza, Unspecified 02/01/2024(Deferr ed: Patient Refused),08/15/2023(Deferred: Patient Refused),08/05/2021(Deferred: Patient Refused),08/05/2020(Deferred: Patient Refused) MMR 04/09/1992,11/09/1989 OPV 04/09/1992, 1,01/04/1990,11/09/1989, 7 Td, adsorbed 11/05/2007 Tdap 07/04/2021 Surgical History Surgery Date Site/Laterality Comments OTHER SURGICAL HISTORY Enlarged Lymph node age 14 yrs: removed it OTHER SURGICAL HISTORY Migraines as child/teenager: Ibuprofen with relief Medical History Medical History Date Comments Hx Other Medical 2007 Work comp injur y to L knee Hx Other Medical Enlarged Lymph node age 14 yrs Hx Other Medical Migraines as ch ild/teenager Asthma 2020 Depression 2020 Hypertension 2020 Anxiety 2018 Alcoholism (HCC) 2020 Family History Medical History Relation Name Comments Other Brother 1 Tino Alive and well; Anxiety disorder Brother 2 Maury anxiety; Hypertension Father Other Father unknown; Diabetes type II Maternal Grandmother Bebe vyas -Type II; Anxiety disorder Mother anxiety; Coronary artery disease Mother Kelly nary artery disease; Depression Mother Depression; Diabetes Mother Diabetes type II Mother Diabetes -T ype II; Hyperlipidemia Mother Hyperlipidemi a; Hypertension Mother Hypertension; Migraines Mother Migraines; Non-Hodgkin's Lymphoma Mother Other Other Family history of Both parents alive and well.; Hypertension Sister 1 Ana Hypertension; Obesity Sister 1 Ana obesity; Other Sister 2 Cierra unknown; Relation Name Status Comments Brother 1 Tino Alive Brother 2 Maury Father Maternal Grandmother Mother Other Sister 1 Ana Sister 2 Cierra Social History Tobacco Use Types Packs/Day Years Used Date Smoking Tobacco: Every Day Cigarettes Smokeless Tobacco: Never Tobacco Cessation:Ready to Q uit: Not Asked; Counseling Given: Not Answered Alcohol Use Standard Drinks/Week Comments Yes 0 (1 standard drink = 0.6 oz pur e alcohol) PHQ-2 Answer Date Recorded PHQ-2 Total Score (If total score is 3 or more points, staff should administer the PHQ-9) 0 03/05/2024 Personal Safety Answer Date Recorded Getting School Help Needed Not on file 10/17 Sex and Gender Information Value Date Recorded Sex Assigned at Not on file Legal Sex Male 3:46 PM INSTRUMENTATION CONTROLS ENGINEER Gender Identity Male 05/28/2023 6:36 PM CDT Sexual Orientation Straight 05/28/2023 6: 36 PM CDT Obstetrics History Last Filed Vital Signs Vital Sign Reading Time Taken Comments Blood Pressure 102/78 03/05/2024 8:04 AM CDT Pulse 112 03/05/2024 8:04 AM CDT Temperature 36.5 C (97.7 F) 08/15/2023 3:23 PM CDT Respiratory Rate 16 03/05/2024 8:04 AM CDT Oxygen Saturation 94% 03/05/2024 8:04 AM CDT Inhaled Oxygen Concentration - - Weight 108 kg (238 lb 3.2 oz) 03/05/2024 8:04 AM CDT Height 170.2 cm (5' 7.01) 03/05/2024 8:04 AM CD T Body Mass Index 37.3 03/05/2024 8:04 AM CDT Plan of Treatment Health Maintenance Due Date Last Done Comments Varicella Vaccines (1 of 2 - 13+ 2-dose series) 2000 Hepatitis B Screening 2005 Pneumococcal vaccine <65 (1 of 2 - PCV) 2006 HPV Vaccines (1 - 3-dose SCD M series) 2014 Depression Screening 03/05/2025 03/05/2024, 08/15/2023, 11/14/2022, Additional history exists Regular Well Visit/Exam 18-64 03/05/2025, 10/02/2022, 07/04/2021 Influenza Vaccine (#1) 2025 DTaP/Tdap/Td Vaccine (7 - Td or Tdap) 07/04/2031 07/04/2021, 11/05/2007, 04/09/1992, Additional history exists Hepatitis C Screening Completed 03/05/2024 Procedures Procedure Name Priority Date/Time Associated Diagnosis Comments HEPATITIS C ANTIBODY Routine 03/05/2024 9:00 AM CDT Elevated LFTs from Last 3 Months or Most Recently Relevant to Health Maintenance Results * Hepatitis C antibody Blood (03/05/2024 9:00 AM CDT) Hep C Ab Nonreactive Nonreactive Comment: Interpretive Data Nonreactive: Antibodies to HCV not detected. Does NOT exclude the possibility of recent exposure to HCV. Equivocal: Equivocal for HCV antibodies. Supplemental molecular testing will be automatically performed to determine infection status in accordance with current CDC screening recommendations. Reactive: Positive for HCV antibodies. This may represent current or past HCV infection. Supplemental molecular testing will be automatically performed to determine current infection status in accordance with current CDC screening recommendations. Interpretive data was last revised on 2020. Testing performed by: [facility], [address] [place] [address], [place]., [address] Blood 03/05/2024 9:00 AM CDT 03/05/2024 11:35 AM CDT us Joe Ratliff MD LAB MICROBIOLOGY - GENERAL ORDER MARIA C Edited Result - Final [facility] Department [place] [address] from Last 3 Months or Most Recently Relevant to Health Maintenance Insurance IDPA Care Teams Tube Lancer Relationship Specialty Start Date End Date Joe Ratliff MD PCP - General Family Medicine 07/04/21 [place] [id number] [address] Consulting Physician Psychiatry 08/15/23
--- OUTSIDE RECORDS SUMMARY | 2025-07-23 19:35 | XMS_ITS | Encounter Summary ---
Author Organization [facility] Address [address] [place] [id number] Care Team Providers Care Automated Manufacturing Instructor Name Role Phone Carly Hermosillo MD Primary Care Provider [phone] Encounter Details Date Type Department Care Team (Late st Contact Info) Description 04/12/2019 Abstract [facility] CONVERSION [address] [place], [place] [id number] , Generic Conversion, Social History Tobacco Use Types Packs/Day Years Used Date Smoking Tobacco: Never Assessed Sex and Gender Information Value Date Recorded Sex Assigned at Not on file Legal Sex Male 8:05 AM CDT Gender Identity Not on file Sexual Orientation Not on file documented as of this encounter Plan of Treatment Not on file documented as of this encounter Visit Diagnoses Not on filedocumented in this encounter Care Teams Automated Manufacturing Instructor Relationship Specialty Start Date End Date Carly Hermosillo MD [address] [place] [id number] PCP - General FAMILY PRACTICE 12/10/20 documented as of this encounter
[2025-07-23] MEDS: ONDANSETRON HCL ODT 4 MG TABLET PO (19:46)
--- NOTE | 2025-07-23 19:54 | ED.MALEGU ---
HPI - Male Genitourinary General Chief complaint: Back Pain/Injury Stated complaint: flank pain Time Seen by Provider: 07/23/25 19:36 Source: patient Mode of arrival: ambulatory Limitations: no limitations History of Present Illness HPI Narrative: This is a 40-year-old male who presents with some nausea with some abdominal fullness has been having some dysuria with some diarrhea with chills no fevers no chest pain no shortness of breath. Onset (ago): day(s) Duration: constant Related Data Home Medications ?Medication ?Instructions ?Recorded ?Confirmed ?Last Taken ?Type buspirone 7.5 mg tablet 7.5 mg PO TID 12/12/19 02/17/22 Unknown History amlodipine 5 mg tablet 5 mg PO DAILY 02/17/22 02/17/22 Unknown History gabapentin 400 mg capsule 400 mg PO BID 02/17/22 02/17/22 Unknown History hydroxyzine pamoate 50 mg capsule 50 mg PO DAILY 02/17/22 02/17/22 Unknown History Allergies Allergy/AdvReac Type Severity Reaction Status Date / Time No Known Allergies Allergy Verified 07/23/25 20:36 Review of Systems Review of Systems: All systems reviewed & are unremarkable except as noted in HPI and below PMFSH Past Medical History Medical History Hypertension Anxiety Surgical History Surgical History H/O lymph node biopsy Social History Social History Smoking packs per day: 1 Smoking cigarettes per day: 20.0 Years smoked: 10 Smoking pack-years: 10.00 Smoking status: Current every day smoker Alcohol intake: current Drinks per week: 1 Alcohol use details: social Substance use: never Exam Const: General: healthy appearing and no acute distress Nutritional Appearance: well nourished Limitations: no limitations HENMT: Head: normal to inspection Eyes: Conjunctivae: conjunctivae normal EOM: EOMs intact bilaterally Direct Ophthalmoscopy: no photophobia Neck: Neck: normal visual inspection, no lymphadenopathy and no meningeal signs Chest: Chest palpation & inspection: normal inspection of the chest Resp: Effort & Inspection: normal respiratory effort Auscultation: clear to auscultation bilaterally Cardio: Rate: regular rate Rhythm: regular rhythm GI: GI Palp: Yes Soft to palpation Auscultation: normal bowel sounds Back/Spine/Pelvis: Back: no CVA tenderness Skin: General skin exam: normal color Rashes: no rashes Neuro: General: patient oriented x3 and moves all extremities Extrem: General: normal to inspection and no clubbing, cyanosis or edema Psych: Mental Status: mental status grossly normal Course Course Emergency Course: Patient received p.o. Zofran and urinalysis performed and reviewed. Vital Signs Vital signs: Vital Signs Temperature 36.4 C L 07/23/25 19:35 Pulse Rate 124 H 07/23/25 19:35 Respiratory Rate 16 07/23/25 19:35 Blood Pressure 106/76 07/23/25 19:35 Pulse Oximetry 98 07/23/25 19:35 Oxygen Delivery Room Air 07/23/25 19:35 Temperature 36.4 C L 07/23/25 19:35 Pulse Rate 124 H 07/23/25 19:35 Respiratory Rate 16 07/23/25 19:35 Blood Pressure 106/76 07/23/25 19:35 Pulse Oximetry 98 07/23/25 19:35 Oxygen Delivery Room Air 07/23/25 19:35 Critical Care Time Critical Care Time Critical Care Time: No Discharge Plan Discharge Clinical Impression: Gastroenteritis Patient Disposition: Home Condition: Stable Instructions: Antibiotic Form, Gastroenteritis (ED) Additional Instructions: advised to take medication as prescribed and to follow with primary care physician if symptoms persist or worsen. Patient Language: Pakistani Prescriptions: New ondansetron 4 mg tablet,disintegrating 4 mg PO Q6H PRN (Reason: nausea and vomiting) Qty: 20 0RF No Action buspirone 7.5 mg tablet 7.5 mg PO TID gabapentin 400 mg capsule 400 mg PO BID hydroxyzine pamoate 50 mg capsule 50 mg PO DAILY amlodipine 5 mg tablet 5 mg PO DAILY indomethacin 75 mg capsule, extended release 75 mg PO BID 10 Days Qty: 20 0RF Follow-up/Referrals: UNKNOWN,DOCTOR [Non-Staff] Time of Disposition: 19:48
[2025-07-23 20:27] LABS: Add Urine Microscopic? YES; Appearance Urine Clear (Clear); Glucose Urine UA Negative (Negative); Leukocyte Esterase Ur Negative LEU/UL (Negative); Nitrate Urine Negative (Negative); Specific Grav Ur 1.010 (1.010-1.020)
[2025-07-23 20:42] VITALS: BP 94/71; PULSE 81; RESP 18; TEMP 36.2; O2SAT 100
== END 2025-07-23 20:48 | disposition home or self-care (01) ==
PROVIDERS: Emergency Provider Emergency Medicine; PCP Family Medicine
DX: K52.9 Noninfective gastroenteritis and colitis, unspecified (principal); I10 Essential (primary) hypertension; F17.210 Nicotine dependence, cigarettes, uncomplicated
CPT/HCPCS: 81001; 99283; A9270